=== PATIENT | male | born 1950 | race Asian ===

== ENCOUNTER 2017-05-17 12:23 | Emergency (ER) | payer OTHER ==
[~2017-05-17] VITALS: Ht 185.4 cm; Wt 99.8 kg
[2017-05-17 12:53] VITALS: TEMP 97.7
[2017-05-17] MEDS ORDERED: PRAVACHOL20 MG PO (12:58)
[2017-05-17] MEDS ORDERED: CLON0.1T16 PO (12:59)
[2017-05-17] MEDS ORDERED: LOPRESSOR100 MG PO (12:59)
[2017-05-17] MEDS ORDERED: AMLODIPINE BESYLATE PO (12:59)
[2017-05-17 13:48] LABS: POTASSIUM 3.6 mmol/L (3.6-5.2)
[2017-05-17 13:50] LABS: PLATELET COUNT 199 K/uL (142-355)
[2017-05-17 15:15] VITALS: BP 145/90
== END 2017-05-17 15:15 | disposition home or self-care (01) ==
LOC: ED 12:23
PROVIDERS: Family Medicine
DX: I16.0 Hypertensive urgency (principal)
CPT/HCPCS: 36415; 80048; 85027; 96374; 96375; 99284; J0360